=== PATIENT | male | born 1955 | race African-American/Black ===

== ENCOUNTER 2017-10-20 15:17 | Day surgery (SDC) | payer OTHER ==
--- NOTE | 2017-10-20 15:23 | PDOC ---
Rapid Medical Evaluation Time Seen by Provider: 10/20/17 15:18 Medical Evaluation: 10/20/17 15:18 I have performed a brief in-person evaluation of this patient. The patient presents with a chief complaint of:finger injury Pertinent physical exam findings: alert, ambulatory. left little finger splinted. treated at [facility]. to see hand surgeon I have ordered the following: hand surgeon to evaluate. tetanus updated 2 days ago. The patient will proceed to the ED for further evaluation.
--- NOTE | 2017-10-20 16:44 | PDOC ---
History of Present Illness - General History Source: Patient Exam Limitations: No Limitations - History of Present Illness Initial Comments: 10/20/17 21:02 61 year old male, with significant past medical history of lymphoma (last chemotherapy 09/06/17), who presents to the emergency room with a left fifth digit injury that occurred 2 days ago. The patient explains that he injured his finger on a chop saw and went to the [facility] Emergency Department where the laceration was irrigated and stitched. He was told to follow up with a Hand Surgeon and was seen by Dr. Trent in the emergency department here today. Denies fever, chills. Denies numbness and tingling. Allergies: NKA PCP: Dr. Womack (not affiliated) <Barbara Abreu - Last Filed: 10/20/17 21:02> <Georgiana Traore - Last Filed: 10/21/17 00:05> - General Chief Complaint: Injury Stated Complaint: PCP SENT Time Seen by Provider: 10/20/17 15:18 Past History <Barbara Arbeu - Last Filed: 10/20/17 21:02> - Past Medical History Cancer: Yes (lymphoma on chemo 10/07/17) COPD: No - Immunization History Td Vaccination: Yes (10/17) - Suicide/Smoking/Psychosocial Hx Smoking History: Current every day smoker Number of Cigarettes Smoked Daily: 4 Information on smoking cessation initiated: No Hx Alcohol Use: No Drug/Substance Use Hx: No Substance Use Type: None <Georgiana Traore - Last Filed: 10/21/17 00:05> - Past Medical History Allergies/Adverse Reactions: Allergies Allergy/AdvReac Type Severity Reaction Status Date / Time No Known Allergies Allergy Verified 10/20/17 15:25 Review of Systems - Review of Systems Able to Perform ROS?: Yes Comments:: 10/20/17 21:02 CONSTITUTIONAL: Absent: fever, no chills, no fatigue EYES: Absent: visual changes ENT: Absent: ear pain, no sore throat CARDIOVASCULAR: Absent: chest pain, no palpitations RESPIRATORY: Absent: cough, no SOB GI: Absent: abdominal pain, no nausea, no vomiting, no constipation, no diarrhea GENITOURINARY: Absent: dysuria, no frequency, no hematuria MUSCULOSKELETAL: Absent: back pain, no arthralgia, no myalgia SKIN: Present: left fifth digit injury Absent: rash NEURO: Absent: headache <Barbara Abreu - Last Filed: 10/20/17 21:02> *Physical Exam - Vital Signs Last Vital Signs Temp Pulse Resp BP Pulse Ox 97.8 F 104 H 18 122/74 100 10/20/17 15:20 10/20/17 15:20 10/20/17 15:20 10/20/17 15:20 10/20/17 15:20 - Physical Exam Comments: 10/20/17 21:02 GENERAL: Well-appearing, well-nourished. No apparent distress. HEENT: Normocephalic, atraumatic. PERRL, EOM intact. CARDIOVASCULAR: Normal S1, S2. Regular rate and rhythm. PULMONARY: Clear to auscultation bilaterally. LEFT HAND: There is a large surgical dressing on the left 5th digit that was just treated by Dr. Trent the hand surgeon. NEUROLOGICAL: No focal neurological deficits. <Barbara Abreu - Last Filed: 10/20/17 21:02> - Vital Signs Last Vital Signs Temp Pulse Resp BP Pulse Ox 97.8 F 104 H 18 122/74 100 10/20/17 15:20 10/20/17 15:20 10/20/17 15:20 10/20/17 15:20 10/20/17 15:20 <Georgiana Traore - Last Filed: 10/21/17 00:05> ED Treatment Course - LABORATORY CBC & Chemistry Diagram: 10/20/17 19:15 10/20/17 19:15 - ADDITIONAL ORDERS Additional order review: Laboratory Results 10/20/17 10/20/17 19:15 19:15 PT with INR 12.60 H INR 1.12 Sodium 142 Potassium 3.7 Chloride 105 Carbon Dioxide 32 Anion Gap 5 L BUN 12 Creatinine 0.8 Random Glucose 90 Calcium 7.9 L 10/20/17 19:15 RBC 3.68 L MCV 89.5 MCHC 31.8 L RDW 18.1 H MPV 8.7 Neutrophils % 70.0 Lymphocytes % 4.7 L Monocytes % 19.7 H Eosinophils % 5.0 H Basophils % 0.6 <Barbara Abreu - Last Filed: 10/20/17 21:02> - LABORATORY CBC & Chemistry Diagram: 10/20/17 19:15 10/20/17 19:15 <Georgiana Traore - Last Filed: 10/21/17 00:05> Medical Decision Making - Medical Decision Making 10/20/17 16:43 61 yo male who has a finger injury and is being seen by the hand surgeon Dr Trent at this time who is admitting this patient for care of his lacerated 5th digit on his left hand 10/21/17 00:03 <Georgiana Traore - Last Filed: 10/21/17 00:05> *DC/Admit/Observation/Transfer - Attestations Scribe Attestion: 10/20/17 21:03 Documentation prepared by SHARRI Albarran, acting as manager medical affairs for Georgiana Traore MD. <Barbara Abreu - Last Filed: 10/20/17 21:02> - Discharge Dispostion Admit: Yes <Georgiana Traore - Last Filed: 10/21/17 00:05> Diagnosis at time of Disposition: Finger injury Qualifiers: Encounter type: sequela
[2017-10-20] MEDS ORDERED: LIDOCAINE HCL 1%, 10 MG/ML (50 mL VIAL) SQ STA (16:49)
[2017-10-20] MEDS ORDERED: AMPICILLIN NA/SULBACTAM NA 3 GM in SODIUM CHLORIDE 100 ML IVPB ONE (16:52)
[2017-10-20] MEDS ORDERED: KETOROLAC TROMETHAMINE 15 MG/ML VIAL IVPUSH PRN (18:28)
--- NOTE | 2017-10-20 18:33 | HP ---
Admitting History and Physical - Admission Chief Complaint: left small finger traumatic injury at work History of Present Illness: 61 yo RHD male PMH Lyphoma on chemotherapy (09/06), neutropenia, presents for urgent care to ED with a injury sustained 2 days prior 10/18 at work. He had an accidental chop saw injury to the left small finger. He was seen at [facility] and open fracture was diagnosed and first aid was rendered including temporary wound closure and finger splint. His pain since the injury has been sever and he had concerns about the viability of finger. There were no other injuries reported. He was provided antibiotics and told to follow up for definitive management. He presented the ED at [facility] where his diagnosis of open fracture was confirmed and he was admitted and treated emergently given his underlying immunocompromised state with IV antibotics and a plan for definitive surgery. History Source: Patient Limitations to Obtaining History: No Limitations - Past Medical History Heme/Onc: Yes: Cancer (lymphoma on chemotherapy last Sep 06, next October), Current Chemotherapy (last 09/06 next in early october 2017), Other (neutropenia ) Psych: Yes: Addictions (current tobacco, and formerly illicit narcotics) - Past Surgical History Past Surgical History: Yes: Stent (abdominal viscera) - Smoking History Smoking history: Current every day smoker Have you smoked in the past 12 months: Yes Aproximately how many cigarettes per day: 4 - Alcohol/Substance Use Hx Alcohol Use: No - Social History Usual Living Arrangement: Yes: Other (getting re- on ) History of Recent Travel: No Home Medications - Allergies Allergies/Adverse Reactions: Allergies Allergy/AdvReac Type Severity Reaction Status Date / Time No Known Allergies Allergy Verified 10/20/17 15:25 Family Disease History - Family Disease History Family History: Denies Review of Systems - Review of Systems Constitutional: denies: Chills, Fever, Unintentional Wgt. Loss Eyes: denies: Blurred Vision, Recent Change in Vision HENT: denies: Difficult Swallowing, Nasal Congestion Neck: denies: Stiffness, Swollen Glands Cardiovascular: denies: Chest Pain, Palpitations, Shortness of Breath Respiratory: reports: Wheezing. denies: Cough, SOB Gastrointestinal: reports: Abdominal Pain. denies: Bloating, Constipation Genitourinary: denies: Burning, Discharge Breasts: denies: Lumps, Skin Changes Musculoskeletal: denies: Joint Pain, Joint Swelling Integumentary: reports: Wound (left small finger) Neurological: denies: Change in LOC, Change in Speech, Incoordination Endocrine: denies: Unexplained Weight Gain, Unexplained Weight Loss Hematology/Lymphatic: denies: Swollen Glands Psychiatric: denies: Anxiety, Depression Physical Examination Vital Signs: Vital Signs Temperature 97.8 F 10/20/17 15:20 Pulse Rate 104 H 10/20/17 15:20 Respiratory Rate 18 10/20/17 15:20 Blood Pressure 122/74 10/20/17 15:20 O2 Sat by Pulse Oximetry (%) 100 10/20/17 15:20 Vital Signs Period Temp Pulse Resp BP Sys/Del Toro Pulse Ox Last 24 Hr 97.8 F 104 18 122/74 100 Constitutional: Yes: No Distress, Calm, Cachectic Eyes: Yes: Conjunctiva Clear, EOM Intact HENT: Yes: Atraumatic, Normocephalic Neck: Yes: Supple, Trachea Midline Cardiovascular: Yes: Regular Rate and Rhythm, S1, S2 Respiratory: Yes: Regular, CTA Bilaterally, Wheezes Gastrointestinal: Yes: Normal Bowel Sounds, Soft ...Rectal Exam: Yes: Deferred Renal/: No: CVA Tenderness - Left, CVA Tenderness - Right Breast(s): Yes: WNL, Left, Right Musculoskeletal: No: Back Pain, Muscle Pain, Muscle Weakness Extremities: Yes: Amputation (left small finger open deep near amputation at PIP joint) Edema: No Peripheral Pulses WNL: Yes Peripheral Pulses: Left Radial: 2+, Right Radial: 2+ Integumentary: Yes: Laceration (2cm lacertion dorsum left small finger at PIP joing closed with blue proline) Wound/Incision: Yes: Clean/Dry, Well Approximated (2 cm laceration, oblique zone III and IV, normal resing flexor tenodesis to extensor function at DIP joint), Sutures Intact, Dressing Removed, Reddened. No: Sutures Removed Neurological: Yes: WNL (nl 2PD <6mm tips all finger left hand), Alert, Oriented ...Motor Strength: LUE (diminishe 2nd to discomfort) Psychiatric: Yes: Alert, Oriented Labs: CBC, BMP 10/20/17 19:15 10/20/17 19:15 INR, PTT INR 1.12 (0.82-1.09) 10/20/17 19:15 Abnormal Lab Results 10/20/17 10/20/17 10/20/17 19:15 19:15 19:15 WBC 3.3 L RBC 3.68 L Hgb 10.5 L Hct 32.9 L MCHC 31.8 L RDW 18.1 H Lymphocytes % 4.7 L Monocytes % 19.7 H Eosinophils % 5.0 H PT with INR 12.60 H Anion Gap 5 L Calcium 7.9 L Imaging - Results X-ray: Image Reviewed (intraarticular condylar fracture proximal phalnyx left small finger at PIP joint) Problem List - Problems (1) Open fracture of finger of left hand Assessment/Plan: 61 yo male RHD PMH Lyphoma on chemotherapy (09/06), neutropenia, Left small finger chop saw injury at work 1. Zone III/ IV extensor tendon laceration left small finger 2. Open fracture proximal phalanx condylar/ intraarticular at PIP joint left small finger 3. full thickness skin laceration 2cm dorsum left small finger Admit for emergent definitive management of open fracture NPO IVF hydration IV antibiotics Adequate analgesia Obtain informed consent for ORIF of proximal phalanx, Repair of extensor tendon left small finger risks benefits and alternatives explained, as well as poor prognosis for joint function given intra articular injury at the PIP joint he sign consent after having all of his questions answered to his satisfaction. Code(s): S62.609B - FRACTURE OF UNSP PHALANX OF UNSP FINGER, INIT FOR OPN FX Qualifiers: Encounter type: initial encounter Finger: little finger Phalanx: proximal Fracture alignment: nondisplaced Qualified Code(s): S62.647B - Nondisplaced fracture of proximal phalanx of left little finger, initial encounter for open fracture (2) Extensor tendon laceration of finger with open wound Assessment/Plan: see above surgical plan Code(s): S66.529A - LACERAT INTRNS MUSC/FASC/TEND UNSP FNGR AT WRS/HND LV, INIT ; S61.209A - UNSP OPEN WOUND OF UNSP FINGER W/O DAMAGE TO NAIL, INIT Qualifiers: Encounter type: initial encounter Qualified Code(s): S66.529A - Laceration of intrinsic muscle, fascia and tendon of unspecified finger at wrist and hand level, initial encounter; S61.209A - Unspecified open wound of unspecified finger without damage to nail, initial encounter; S61.209A - Unspecified open wound of unspecified finger without damage to nail, initial encounter (3) Lymphoma Assessment/Plan: VTE prohpylaxsis Code(s): C85.90 - NON-HODGKIN LYMPHOMA, UNSPECIFIED, UNSPECIFIED SITE Qualifiers: Lymphoma type: unspecified type Lymphoma site: intra-abdominal nodes Qualified Code(s): C85.93 - Non-Hodgkin lymphoma, unspecified, intra-abdominal lymph nodes (4) Neutropenia Code(s): D70.9 - NEUTROPENIA, UNSPECIFIED Qualifiers: Neutropenia type: secondary to cancer chemotherapy Qualified Code(s): D70.1 - Agranulocytosis secondary to cancer chemotherapy; T45.1X5A - Adverse effect of antineoplastic and immunosuppressive drugs, initial encounter; T45.1X5A - Adverse effect of antineoplastic and immunosuppressive drugs, initial encounter
[2017-10-20 19:49] LABS: BASOPHIL 0.6 % (0-2.0); MCH 28.5 pg (25.7-33.7); MCHC 31.8 g/dl (32.0-35.9); MEAN CELL VOLUME 89.5 fl (80-96); MEAN PLT VOLUME 8.7 fl (7.5-11.1); PLATELET COUNT 215 K/MM3 (134-434); RDW 18.1 % (11.9-15.9); WHITE BLOOD COUNT 3.3 K/mm3 (4.0-10.0)
[2017-10-20 20:03] LABS: INR 1.12 (0.82-1.09); PROTHROMBIN TIME (PATIENT) 12.6 SEC (9.98-11.88)
[2017-10-20 20:24] LABS: ANION GAP 5 (8-16); CALCIUM 7.9 mg/dL (8.5-10.1); CO2 32 mmol/L (21-32); CREATININE 0.8 mg/dL (0.7-1.3); GLUCOSE,RANDOM 90 mg/dL (74-106)
[2017-10-20] MEDS: LACTATED RINGERS SOLUTION 1,000 ML/1,000 ML INFUS.BAG IV SCH ×2 (21:30→23:43)
[2017-10-20] MEDS ORDERED: ONDANSETRON 4 MG/2 ML VIAL IVPB PRN (21:42)
[2017-10-20] MEDS: AMPICILLIN NA/SULBACTAM NA 3 GM in SODIUM CHLORIDE 100 ML IVPB SCH (23:54)
[2017-10-21] MEDS ORDERED: AMPICILLIN NA/SULBACTAM NA 3 GM in DEXTROSE 5%-WATER - 100 ML IVPB ONE (00:02)
[2017-10-21 01:13] VITALS: BMI 23.3
[2017-10-21] MEDS: AMPICILLIN NA/SULBACTAM NA 3 GM in SODIUM CHLORIDE 100 ML IVPB SCH (02:40)
[2017-10-21] MEDS ORDERED: HEPARIN NA (PORCINE) 5,000 UNITS/ML 1ML VIAL SQ SCH ×2 (06:00→22:00)
[2017-10-21] MEDS ORDERED: PT OWN MED DRAWER 7, Y5N ONE ×3 (06:09→15:30)
[2017-10-21] MEDS ORDERED: AMPICILLIN NA/SULBACTAM NA 3 GM in SODIUM CHLORIDE 100 ML IVPB SCH ×2 (09:00→15:00)
[2017-10-21] MEDS ORDERED: PROPOFOL 20 ML ONE (13:03)
[2017-10-21] MEDS ORDERED: MIDAZOLAM HCL 2 MG/2 ML SINGLE DOSE VIAL ONE (13:03)
[2017-10-21] MEDS ORDERED: LIDOCAINE HCL 1%, 10 MG/ML (20ML VIAL) INF ONE (13:23)
--- NOTE | 2017-10-21 14:18 | OP ---
Operative Note - Note: Operative Date: 10/21/17 Pre-Operative Diagnosis: open fracture proximal phalynx left small finger Operation: Open reduction and internal fixation of proximal phalanx facture. Wound Debridemnt 2cm X 3cm X 1 cm bone tendon and skin. Primary repair 100% laceration of extensor digitorum comminus zone III. all left small finger Findings: intra-articular condylar fracture proximal phalanx left small finger minimally displaced 100% laceration of EDC zone III left small finger Implants: K-wire 0.45 X2 Post-Operative Diagnosis: Same as Pre-op Surgeon: Tien Trent Anesthesia: Local (1% lidocaine 10ml), MAC Specimens Removed: none Instrument used (Debridements only): scalple and scissors Drains & Tubes with Location: none Operative Report Dictated: Yes
--- NOTE | 2017-10-21 14:30 | DS ---
Physical Examination Vital Signs: Vital Signs Temperature 98.1 F 10/21/17 07:30 Pulse Rate 72 10/21/17 07:30 Respiratory Rate 20 10/21/17 07:30 Blood Pressure 106/64 10/21/17 07:30 O2 Sat by Pulse Oximetry (%) 96 10/20/17 23:38 Vital Signs Period Temp Pulse Resp BP Sys/Del Toro Pulse Ox Last 24 Hr 97.8 F-98.8 F 72-104 17-85 106-129/64-74 96-100 Findings/Remarks: 61 yo male S/p ORIF proximal phalanx left small finger and extensor tendon repair. stable for discharge home post op. Constitutional: Yes: Well Nourished, No Distress, Calm Eyes: Yes: Conjunctiva Clear, EOM Intact HENT: Yes: Atraumatic, Normocephalic Cardiovascular: Yes: Regular Rate and Rhythm, S1, S2. No: Murmur Respiratory: Yes: Regular, CTA Bilaterally, Cough (frothy white sputum) Gastrointestinal: Yes: Normal Bowel Sounds, Soft ...Rectal Exam: Yes: Deferred Renal/: No: CVA Tenderness - Left, CVA Tenderness - Right Breast(s): Yes: WNL, Left, Right. No: Gynecomastia Extremities: Yes: Other (left arm splinted) Edema: No Peripheral Pulses WNL: Yes Peripheral Pulses: Left Radial: 2+, Right Radial: 2+ Wound/Incision: Yes: Clean/Dry, Well Approximated, Dressing Dry and Intact, Other (ulnar gutter splint clean and intact left hand) Neurological: Yes: Alert, Oriented Psychiatric: Yes: Alert, Oriented Labs: CBC, BMP 10/20/17 19:15 10/20/17 19:15 Discharge Summary Reason For Visit: FINGER INJURY Current Active Problems Extensor tendon laceration of finger with open wound (Acute) Finger injury (Acute) Lymphoma (Acute) Neutropenia (Acute) Open fracture of finger of left hand (Acute) Procedures: Principal: ORIF proximal phalanx left small finger, extensor tendon repair Hospital Course: 61 yo male lymphoma on chemo therapy open fracture left small finger sustained at work s/p ORIF and extensor tendon repair. Admitted for definitive management of and open fracture left small finger. Given intravenous antibiotics over night and taken to the operating room the next morning for and uneventful fixation and repair. Stable postop, toleating dinner, can be discharged on antibiotics and pain medication for f/u in 2 weeks. Time spent reviewing chart, examining patient, talking with patient and/or family and documentation is 35 minutes Condition: Improved - Instructions Diet, Activity, Other Instructions: Postoperative instructions: You had a ORIF left small finger and extensor tendon repair on 10/21/[address] Tien Trent of [facility]. Activity: Resume your usual activities gradually, but no use left hand 2 weeks. Elevate your left arm on a pillow when in bed above heart level. KEEP YOUR SPLINT CLEAN AND DRY. Eat lightly at first, but advance to your usual diet as tolerated. Pain: For pain, you may use and alternate Tylenol (acetaminophen) and/or ibuprofen every 6 hours each as needed; this means that you can take one OR the other at 3-hour intervals. If you are prescribed a Tylenol/narcotic combination for severe pain, use it instead of plain Tylenol as needed and switch back when your pain starts decreasing. Do not take more than 4000mg of acetaminophen in a day. Take medications as prescribed or indicated on the labeling. Follow-up: Call Dr. Trent' office at [phone] to make your postop appointment (Friday 1-2 weeks after surgery as advised). Clinic is held in the Diagnostic Center on the first floor of [facility]. Call the office if you have: * increasing pain not responsive to pain medication * fever of 101F or higher * unusual or increasing bleeding or drainage from wounds * increasing redness or swelling at wound sites Also, see your primary medical doctor within 1-2 weeks. Referrals: STAFF,NOT ON [Primary Care Provider] - Disposition: HOME - Home Medications Comprehensive Discharge Medication List: Ambulatory Orders Keflex 500mg PO 4 times per day X 7 days Acetaminophen 650mg and Ibuprofen 600mg PO as directed for pain. Pepcid can be resumed 10/21/17
[2017-10-21] MEDS ORDERED: KETOROLAC TROMETHAMINE 15 MG/ML VIAL IVPUSH PRN (14:46)
[2017-10-21] MEDS ORDERED: ONDANSETRON 4 MG/2 ML VIAL IVPB PRN (14:46)
[2017-10-21 15:50] VITALS: BP 137/87; PULSE 68; TEMP 98
--- NOTE | 2017-10-21 16:01 | OP ---
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 ANESTHESIA: Loulou Rodriguez MD PREOPERATIVE DIAGNOSIS: Open fracture, proximal phalanx, left small finger. POSTOPERATIVE DIAGNOSES: Open proximal phalanx fracture, left small finger; 100 % laceration zone III, extensor digitorum communis tendon, left small finger. OPERATION: Open reduction and internal fixation of proximal phalanx fracture, left small finger. Wound debridement 2 cm x 3 cm x 1 cm, bone, tendon, and skin. Primary repair of 100% laceration of extensor digitorum communis tendon, zone III, left small finger. IMPLANTS: Robert wire 0.045 x2. ANESTHESIA: Local 1% lidocaine 10 mL and sedation. SPECIMENS: None. INSTRUMENTS USED FOR DEBRIDEMENT: Scalpel and scissors. INDICATIONS: Patient is a 61-year-old male with history of lymphoma on chemotherapy, neutropenic, presents after sustaining a chop saw injury at work 2 days prior which received first aid at [facility], presented for definitive management with concerns of worsening pain, infection at the site. He was only on oral antibiotics. He was given the information for followup here at [facility]. We evaluated the patient with his open fracture, admitted him for IV antibiotics, and explained to him that he would require surgery for fixation of the fracture, debridement of the wound, and an attempt to preserve the fingers' function. He signed informed consent after the risks, benefits, and alternatives of the surgical plan were discussed. He was taken for the procedure the following morning. DESCRIPTION OF PROCEDURE: Patient was brought to the operating room. He was placed in supine position on the operating table with the left arm extended 90 degrees perpendicular to the body's axis. Patient was induced with sedation. He was also given a digital block of 1% lidocaine and 0.5% Marcaine. At which point, the left arm was prepped and draped into a standard sterile field from fingertip to elbow. A formal time-out was completed all parties agreed on the site an procedure. We proceeded then first with identification of the fracture. The previous Prolene sutures which were placed at the dorsum in zone III on his oblique laceration were removed and debrided from the field. Devitalized, dorsal veins, bone debris, saw debris were all removed. There appeared at this time that the patient will require extension of the laceration to better explore the field. Lateral incisions were placed proximally and distally to allow for exposure. These were marked. At which point, the arm was exsanguinated, and a tourniquet was inflated to a pressure cuff of 250 mmHg. With the tourniquet up, we were able to in a blood less field incise the skin. It was deepened and widened through subcutaneous tissue along the extension díaz. The patient was already receiving intravenous antibiotics. With the flaps retracted, we were able to see a 100% laceration of the extensor digitorum communis tendon in zone III obliquely across the proximal interphalangeal joint of the left small finger. We proceeded first with debridement of multiple forms of debris including bone, tendon, skin, and saw blade debris. This was debrided from the wound with a rongeur from the condyles of the proximal phalanx. At this point, a mini C-arm was used to identify in 2 views the extent of the open fracture. It appeared to be a 3/4 cortex, minimally displaced fracture. It was held in reduction. At which point, a Robert wire 0.045 was passed in retrograde fashion across the articular surface of the middle phalanx and distal phalanx and then reversed into the proximal phalanx, reducing the condyle fracture fragment into normal anatomic position. It was then driven with a Robert wire size 0.045 as well to stabilize the joint itself in neutral extension at 0 degrees at the PIP joint. The site was then irrigated. The condylar fracture was intra-articularly reduced. We then turned our attention to exploration of the neurovascular bundles. There did appear to be intact neurovascular bundles without damage to the volar plate of the joint. The dorsal plate was completely destroyed and avulsed. That was debrided as well. The dorsal capsule of the proximal interphalangeal joint was debrided sharply with tenotomy scissors. We then proceeded with elevating the extensor tendon in zone III. Distally, there were 2 leaves/lateral bands which were repaired to its proximal lacerated segment using No. 4-0 Ethibond lying in a modified Mock stitch across the site and snugging it tight. Two additional interrupted were used to approximate the edges of the extensor tendon. With this repair completed, the site was then again irrigated. The remaining dorsal vasculature, pressure was held. Tourniquet was relieved at 29 minutes. We then proceeded with a closure of the skin using simple interrupted 4-0 nylon along the length of the incision. The skin was cleaned. Pins were cut to length and folded on themselves to allow for removal. We then proceeded with dressing the pin sites with Xeroform and 4 x 4 gauze. An ulnar gutter splint was then placed at the site to protect the repair. It was by hand molded in neutral resting position at the MCP joint. The patient was awoken from sedation , having tolerated the procedure well. The counts were correct. MD COLETTE Kay/[id number] MTDD
--- NOTE | 2017-10-21 17:52 | EKG ---
Test Reason : Blood Pressure : / mmHG Vent. Rate : 072 BPM Atrial Rate : 072 BPM P-R Int : 148 ms QRS Dur : 082 ms QT Int : 388 ms P-R-T Axes : 041 009 036 degrees QTc Int : 424 ms NORMAL SINUS RHYTHM SLOW R WAVE PROGRESSION V1-V3 WHEN COMPARED WITH ECG OF 20-OCT-2017 19:25, NO SIGNIFICANT CHANGE WAS FOUND Confirmed by CLARISSA FERRER MD ([id number]) on 10/21/2017 5:51:46 PM Referred By: Stacy LUONG Confirmed By:CLARISSA FERRER MD
--- NOTE | 2017-10-27 23:20 | EKG ---
Test Reason : Blood Pressure : / mmHG Vent. Rate : 090 BPM Atrial Rate : 090 BPM P-R Int : 140 ms QRS Dur : 082 ms QT Int : 374 ms P-R-T Axes : 054 019 039 degrees QTc Int : 457 ms NORMAL SINUS RHYTHM NORMAL ECG NO PREVIOUS ECGS AVAILABLE Confirmed by ANURADHA BAUTISTA MD ([id number]) on 10/27/2017 11:20:26 PM Referred By: Confirmed By:ANURADHA BAUTISTA MD
== END 2017-10-21 17:02 | disposition home or self-care (01) ==
LOC: JER 15:17 → JERFT 15:17 → JASUSAT 20:03 → J6S 23:36 → JASUSAT 10-21 17:02
PROC: 0PSV04Z Reposition Left Finger Phalanx with Internal Fixation Device, Open Approach (ICD-10-PCS; principal; 2017-10-20)
PROC: 0PSV04Z Reposition Left Finger Phalanx with Internal Fixation Device, Open Approach (ICD-10-PCS; 2017-10-20)
PROC: 0LQ80ZZ Repair Left Hand Tendon, Open Approach (ICD-10-PCS; 2017-10-20)
DX: S66.327A Laceration of extensor muscle, fascia and tendon of left little finger at wrist and hand level, initial encounter (principal); S62.617B Displaced fracture of proximal phalanx of left little finger, initial encounter for open fracture; X58.XXXA Exposure to other specified factors, initial encounter; Y93.9 Activity, unspecified; Y92.9 Unspecified place or not applicable; Y99.9 Unspecified external cause status; C85.90 Non-Hodgkin lymphoma, unspecified, unspecified site; D70.1 Agranulocytosis secondary to cancer chemotherapy
CPT/HCPCS: 36415; 73130-TC-LT; 76000-TC; 80048; 85025; 85610; 86850; 86900; 86901; 93005; 93010; 94760; 99285-25